=== PATIENT | female | born 1960 | race Two or more races ===

== ENCOUNTER 2018-01-16 09:42 | Emergency (ER) | payer OTHER ==
[~2018-01-16] VITALS: Ht 170.2 cm; Wt 129.3 kg
[~2018-01-16 09:42] MED LIST: Hyzaar 100-12.5 Tablet PO; Lipitor PO; PLAVIX 75MG PO; Toprol Xl 25MG TAB PO; ZANTAC150 MG PO
[2018-01-16] MEDS ORDERED: NORFLEX (10:09)
[2018-01-16] MEDS ORDERED: CATAFLAN (10:09)
== END 2018-01-16 13:46 | disposition home or self-care (01) ==
LOC: ER 09:42
DX: M54.5 Low back pain (principal)

== ENCOUNTER 2018-06-26 17:21 | Emergency (ER) | payer OTHER ==
[~2018-06-26] VITALS: Ht 170.2 cm; Wt 118.4 kg
[~2018-06-26 17:21] MED LIST changes: +CATAFLAN; +NORFLEX
[2018-06-26] MEDS ORDERED: VISTARIL25 MG PO (20:40)
[2018-06-26] MEDS ORDERED: BIO-IMMUNEX CA500 MG PO (20:40)
== END 2018-06-26 20:46 | disposition home or self-care (01) ==
LOC: ER 17:21
DX: G47.09 Other insomnia (principal); E07.89 Other specified disorders of thyroid

== ENCOUNTER 2021-03-23 08:30 | Emergency (ER) | payer OTHER ==
[~2021-03-23] VITALS: Ht 170.2 cm; Wt 131.5 kg
[~2021-03-23 08:30] MED LIST changes: +BIO-IMMUNEX CA500 MG PO; +VISTARIL25 MG PO
== END 2021-03-23 18:12 | disposition home or self-care (01) ==
LOC: ER 08:30
DX: M94.0 Chondrocostal junction syndrome [Tietze] (principal); S62.101A Fracture of unspecified carpal bone, right wrist, initial encounter for closed fracture; W19.XXXA Unspecified fall, initial encounter; Y92.89 Other specified places as the place of occurrence of the external cause; I10 Essential (primary) hypertension